=== PATIENT | male | born 1940 | race African-American/Black ===

== ENCOUNTER 2016-06-14 16:15 | Outpatient (RCR) | payer OTHER | END 2016-06-29 | disposition home or self-care (01) | LOC: PTY 16:15 | DX: M47.816 Spondylosis without myelopathy or radiculopathy, lumbar region (principal); M79.2 Neuralgia and neuritis, unspecified; M25.512 Pain in left shoulder; E11.9 Type 2 diabetes mellitus without complications; I12.9 Hypertensive chronic kidney disease with stage 1 through stage 4 chronic kidney disease, or unspecified chronic kidney disease; E78.00 Pure hypercholesterolemia, unspecified | CPT/HCPCS: 97110; G0283 ==

== ENCOUNTER 2016-07-05 13:13 | Outpatient (RCR) | payer OTHER | END 2016-07-27 | disposition home or self-care (01) | LOC: PTY 13:13 | DX: M47.816 Spondylosis without myelopathy or radiculopathy, lumbar region (principal); M79.2 Neuralgia and neuritis, unspecified; M25.512 Pain in left shoulder; E11.9 Type 2 diabetes mellitus without complications; I12.9 Hypertensive chronic kidney disease with stage 1 through stage 4 chronic kidney disease, or unspecified chronic kidney disease; E78.00 Pure hypercholesterolemia, unspecified ==

== ENCOUNTER 2016-09-08 16:00 | Outpatient (RCR) | payer OTHER | END 2016-09-26 | disposition home or self-care (01) | LOC: PTY 16:00 | DX: M25.562 Pain in left knee (principal); G89.29 Other chronic pain | CPT/HCPCS: 97110; 97161; G0283 ==

== ENCOUNTER 2016-09-27 15:25 | Outpatient (RCR) | payer OTHER | END 2016-10-27 | disposition home or self-care (01) | LOC: PTY 15:25 | DX: M47.816 Spondylosis without myelopathy or radiculopathy, lumbar region (principal); G89.29 Other chronic pain; M79.2 Neuralgia and neuritis, unspecified; M25.512 Pain in left shoulder; I12.9 Hypertensive chronic kidney disease with stage 1 through stage 4 chronic kidney disease, or unspecified chronic kidney disease; E11.22 Type 2 diabetes mellitus with diabetic chronic kidney disease; N18.9 Chronic kidney disease, unspecified; E11.40 Type 2 diabetes mellitus with diabetic neuropathy, unspecified | CPT/HCPCS: 97110; G0283 ==

== ENCOUNTER 2016-11-10 15:07 | Outpatient (RCR) | payer OTHER | END 2016-11-26 | disposition home or self-care (01) | LOC: PTY 15:07 | DX: M25.562 Pain in left knee (principal); G89.29 Other chronic pain | CPT/HCPCS: 97110; 97140; G0283 ==

== ENCOUNTER 2016-12-10 15:00 | Outpatient (RCR) | payer OTHER | END 2016-12-27 | disposition home or self-care (01) | LOC: PTY 15:00 | DX: M25.562 Pain in left knee (principal); G89.29 Other chronic pain | CPT/HCPCS: 97110; G0283 ==